=== PATIENT | male | born 1940 | race Caucasian/White ===

== ENCOUNTER → 2016-05-01 | Outpatient (CLI) | payer MEDICARE, BC | LOC: MW.CHUR 13:04 | PROVIDERS: ATTEND Urology | DX: N39.0 Urinary tract infection, site not specified (principal); R35.1 Nocturia | CPT/HCPCS: 76872; 81001; 87086; G0463 ==

== ENCOUNTER 2016-05-20 06:31 | Day surgery (SDC) | payer MEDICARE, BC ==
[~2016-05-20 06:31] MED LIST: Ciprofloxacin in D5W 400 MG in Premix Bag 1 BAG IV SCH; Lactated Ringers 1,000 ML IV SCH
[2016-05-20] MEDS ORDERED: fentaNYL 100 MCG/2 ML SDV ONE (07:09)
[2016-05-20] MEDS ORDERED: Propofol 200 MG/20 ML SDV ONE (07:09)
[2016-05-20] MEDS ORDERED: Lidocaine 2% 5 ML SDV ONE (07:09)
[2016-05-20] MEDS ORDERED: Midazolam 1 MG/ML 2 ML SDV ONE (07:09)
--- NOTE | 2016-05-20 07:21 | PCM.PREANE ---
Preanesthetic Assessment - Anesthesia/Transfusion/Family Hx Anesthesia History: Prior Anesthesia Without Reaction Other Type of Anesthesia Reaction Comment: states was confused when first coming out of anesthesia with prostate surge Family History of Anesthesia Reaction: No Transfusion History: No Prior Transfusion(s) - Review of Systems General: No Symptoms Pulmonary: No Symptoms Cardiovascular: No Symptoms Gastrointestinal: No symptoms Neurological: No Symptoms Other: Reports: None - Physical Assessment NPO Status Date: 05/19/16 Height: 1.83 m Weight: 124.284 kg ASA Class: 2 Mental Status: Alert & Oriented x3 Airway Class: Mallampati = 2 Dentition: Reports: Normal Dentition ROM/Head Extension: Full Lungs: Clear to auscultation Cardiovascular: Regular Rate - Allergies Allergies/Adverse Reactions: Allergies Allergy/AdvReac Type Severity Reaction Status Date / Time levofloxacin [From Levaquin] Allergy Other Verified 05/14/16 12:16 - Anesthesia Plan Pre-Op Medication Ordered: None Beta Dorothy: Metoprolol Med Last Dose Date: 05/19/16 Med Last Dose Time: 18:00 - Acknowledgements Anesthesia Type Planned: Spinal Pt an Appropriate Candidate for the Planned Anesthesia: Yes Alternatives and Risks of Anesthesia Discussed w Pt/Guardian: Yes Pt/Guardian Understands and Agrees with Anesthesia Plan: Yes PreAnesthesia Questionnaire HEENT History: Reports: Other (see below) Other HEENT History: wears glasses Cardiovascular History: Reports: High cholesterol, Hypertension Respiratory History: Reports: Pneumonia, recurrent, SOB Other Respiratory History: SOB (on inhaler), recurrent pneumonia in the past Gastrointestinal History: Reports: None Genitourinary History: Reports: BPH, UTI, recurrent Endocrine/Metabolic History: Reports: Obesity/BMI 30+ - Past Surgical History Head Surgeries/Procedures: Reports: None GI Surgical History: Reports: Colonoscopy Male Surgical History: Reports: Other (see below) Other Male Surgeries/Procedures: prostate surgery in the past - HOME MEDS Home Medications: Home Meds Aspirin [[place] Aspirin] 81 mg PO DAILY 05/14/16 [History] Atenolol [Tenormin] 50 mg PO DAILY 05/14/16 [History] Enalapril Maleate 20 mg PO DAILY 05/14/16 [History] Fluticasone/Vilanterol [Breo Ellipta 100-25 MCG Inhalation Kit] 1 inhalation INH DAILY 05/14/16 [History] Rosuvastatin [Crestor] 5 mg PO DAILY 05/14/16 [History] Tamsulosin HCl [Flomax] 2 tab PO DAILY 05/14/16 [History] Ciprofloxacin HCl [Cipro] 500 mg PO BID 05/15/16 [History] - CURRENT (IN HOUSE) MEDS Current Meds: Current Medications Ciprofloxacin/Dextrose 400 mg/ (Premix) 200 mls @ 200 mls/hr IV ONCALL [facility] Lactated Ringer's (Ringers, Lactated) 1,000 mls @ 100 mls/hr IV ASDIRECTED [facility] Discontinued Medications Fentanyl (Sublimaze) Confirm Administered Dose 100 mcg .ROUTE .STK-MED ONE Stop: 05/20/16 07:10 Lidocaine (Xylocaine-Mpf 2%) Confirm Administered Dose 5 ml .ROUTE .STK-MED ONE Stop: 05/20/16 07:10 Midazolam HCl (Versed 1 Mg/Ml) Confirm Administered Dose 2 mg .ROUTE .STK-MED ONE Stop: 05/20/16 07:10 Propofol (Diprivan 20 Ml) Confirm Administered Dose 400 mg .ROUTE .STK-MED ONE Stop: 05/20/16 07:10 Preanesthetic Assessment - ANESTHESIA/TRANSFUSION/FAMILY HX Other Type of Anesthesia Reaction Comment: states was confused when first coming out of anesthesia with prostate surge Family History of Anesthesia Reaction: No - PHYSICAL ASSESSMENT Height: 1.83 m Weight: 124.284 kg - ALLERGIES Allergies/Adverse Reactions: Allergies Allergy/AdvReac Type Severity Reaction Status Date / Time levofloxacin [From Levaquin] Allergy Other Verified 05/14/16 12:16
[2016-05-20] MEDS ORDERED: ePHEDrine 50 MG/ML SDV ONE (08:20)
[2016-05-20] MEDS ORDERED: Phenylephrine/Normal Saline 100 MCG/ML 10 ML Syringe ONE (08:39)
--- NOTE | 2016-05-20 10:10 | PCM.POSTAN ---
POST ANESTHESIA ASSESSMENT - MENTAL STATUS Mental Status: alert, oriented - RESPIRATORY Respiratory Status: respiratory rate WNL, airway patent - CARDIOVASCULAR CV Status: pulse rate WNL, blood pressure stable - GASTROINTESTINAL GI Status: no symptoms - PAIN Pain Score: 0 - POST OP HYDRATION Hydration Status: adequate & stable
--- NOTE | 2016-05-20 14:24 | OR ---
SURGEON: Kiana Lee M.D. DATE OF PROCEDURE: 05/20/2016 PREOPERATIVE DIAGNOSIS: 1. Enlarged prostate with obstructive symptoms. 2. Increased postvoid residual urine and history of urinary tract infection. POSTOP DIAGNOSIS: 1. Enlarged prostate with obstructive symptoms. 2. Increased postvoid residual urine and history of urinary tract infection. OPERATION: Transurethral resection of the prostate. DESCRIPTION OF PROCEDURE: The patient was given spinal anesthesia, placed in dorsal lithotomy position, prepped and draped in sterile drapes. Cystourethroscopy was done showed the bladder neck to have been resected in the past or treated. The right side of the prostate was partially resected. The left side was not and the anterior part of the prostate was done. So the dissection was started on the left side, continued anteriorly until all the obstructive tissue was removed. At the end, both ureteral orifices were intact. The area of the external sphincter was intact. A 22 three-way Yusuf catheter with 7 mL in the balloon was left in the bladder connected to TUR drip. Estimated blood loss about 200 mL. The patient tolerated the procedure well was moved to recovery room in good condition. FAISAL / TASIA /[id number]
--- NOTE | 2016-05-20 15:00 | PCM.CONS ---
H&P History of Present Illness - General Admit Problem/Dx: Admission Diagnosis/Problem Admission Diagnosis/Problem Transurethral prostatectomy - History of Present Illness Initial Comments - Free Text/Narative: 76 yo male with pmh of hypertension, hyperlipidemia, and BPH. Patient was admitted following elective TURP due to enlarged prostate with obstructive symptoms and UTI. He denies any chest pain, lightheadedness, fevers, or chills. - Related Data Allergies/Adverse Reactions: Allergies Allergy/AdvReac Type Severity Reaction Status Date / Time levofloxacin [From Levaquin] Allergy Other Verified 05/14/16 12:16 Home Medications: Home Meds Aspirin [[place] Aspirin] 81 mg PO BEDTIME 05/14/16 [History] Atenolol [Tenormin] 50 mg PO BEDTIME 05/14/16 [History] Enalapril Maleate 20 mg PO BEDTIME 05/14/16 [History] Fluticasone/Vilanterol [Breo Ellipta 100-25 MCG Inhalation Kit] 1 inhalation INH DAILY 05/14/16 [History] Rosuvastatin [Crestor] 5 mg PO BEDTIME 05/14/16 [History] Tamsulosin HCl [Flomax] 0.8 mg PO BEDTIME 05/14/16 [History] Ciprofloxacin HCl [Cipro] 500 mg PO BID 05/15/16 [History] Past Medical History HEENT History: Reports: Other (see below) Other HEENT History: wears glasses Cardiovascular History: Reports: High cholesterol, Hypertension Respiratory History: Reports: Pneumonia, recurrent, SOB Other Respiratory History: SOB (on inhaler), recurrent pneumonia in the past Gastrointestinal History: Reports: None Genitourinary History: Reports: BPH, UTI, recurrent Endocrine/Metabolic History: Reports: Obesity/BMI 30+ - Past Surgical History Head Surgeries/Procedures: Reports: None GI Surgical History: Reports: Colonoscopy Male Surgical History: Reports: Other (see below) Other Male Surgeries/Procedures: prostate surgery in the past Social & Family History - Family History Family Medical History: Noncontributory - Tobacco Use Smoking Status *Q: Never Smoker Second Hand Smoke Exposure: No - Caffeine Use Caffeine Use: Reports: None - Recreational Drug Use Recreational Drug Use: No Drug Use in Last 12 Months: No H&P Review of Systems - Review of Systems: Review Of Systems: See Below General: Reports: no symptoms HEENT: Reports: no symptoms Pulmonary: Reports: No Symptoms Cardiovascular: Reports: no symptoms Gastrointestinal: Reports: No symptoms Genitourinary: Reports: no symptoms Musculoskeletal: Reports: no symptoms Skin: Reports: no symptoms Psychiatric: Reports: no symptoms Neurological: Reports: No Symptoms Hematologic/Lymphatic: Reports: no symptoms Immunologic: Reports: no symptoms Exam - Exam Exam: See Below - Vital Signs Vital Signs: Last Vital Signs Temp 36.1 C 05/20/16 12:00 Pulse 49 L 05/20/16 13:00 Resp 16 05/20/16 13:00 BP 122/74 05/20/16 13:00 Pulse Ox 97 05/20/16 13:00 Weight: 123.5 kg - Exam General: alert, oriented, 4 Neck: supple, trachea midline, 2 Lungs: Clear to auscultation, Normal respiratory effort Cardiovascular: regular rhythm, bradycardia Abdomen: normal bowel sounds, soft Extremities: normal inspection Skin: warm, dry, intact - Patient Data Lab Results last 24 hrs: Laboratory Results - last 24 hr 05/20/16 Range/Units 06:56 WBC 6.01 (4.0-11.0) K/uL RBC 5.32 (4.50-5.90) M/uL Hgb 15.4 (13.0-17.0) g/dL Hct 48.8 (38.0-50.0) % MCV 91.7 (80.0-98.0) fL MCH 28.9 (27.0-32.0) pg MCHC 31.6 (31.0-37.0) g/dL RDW Std Deviation 46.9 (28.0-62.0) fl RDW Coeff of Deandre 14 (11.0-15.0) % Plt Count 153 (150-400) K/uL MPV 11.30 (7.40-12.00) fL Neut % (Auto) 50.9 (48.0-80.0) % Lymph % (Auto) 38.4 (16.0-40.0) % [place] % (Auto) 9.5 (0.0-15.0) % Eos % (Auto) 1.0 (0.0-7.0) % Baso % (Auto) 0.2 (0.0-1.5) % Neut # (Auto) 3.1 (1.4-5.7) K/uL Lymph # (Auto) 2.3 (0.6-2.4) K/uL [place] # (Auto) 0.6 (0.0-0.8) K/uL Eos # (Auto) 0.1 (0.0-0.7) K/uL Baso # (Auto) 0.0 (0.0-0.1) K/uL Nucleated RBC % 0.0 /100WBC Nucleated RBCs # 0 K/uL Result Diagrams: 05/21/16 04:22 05/21/16 04:22 Consult PN Assessment/Plan Procedures: Procedures ASSAY OF PSA TOTAL (02/18/16) CT ABD & PELVIS W/O CONTRAST (02/18/16) CYSTOSCOPY (07/19/15) MICROBE SUSCEPTIBLE [place] (02/18/16) OFFICE/OUTPATIENT VISIT NEW (07/19/15) ROUTINE VENIPUNCTURE (02/18/16) URINALYSIS AUTO W/SCOPE (05/01/16) URINE BACTERIA CULTURE (02/18/16) URINE CULTURE/COLONY COUNT (05/01/16) US TRANSRECTAL (02/18/16) Problem List Initiated/Reviewed/Updated: Yes My Orders last 24 hours: My Active Orders 05/20/16 14:46 EKG Documentation Completion [RC] ROUTINE Plan: 76 yo male with pmh of hypertension, hyperlipidemia and UTI who is s/p TURP by Dr. Lee. Home antihypertensive medications have been restarted
[2016-05-20] MEDS ORDERED: Ciprofloxacin in D5W 400 MG in Premix Bag 1 BAG IV SCH ×2 (20:00)
[2016-05-20] MEDS ORDERED: diphenhydrAMINE 50 MG/ML SDV IVPUSH ONE (20:08)
[2016-05-20] MEDS: Atenolol 50 MG Tab PO SCH (20:39)
[2016-05-20] MEDS: Rosuvastatin 10 MG Tab PO SCH (20:39)
[2016-05-21 05:02] LABS: CHLORIDE,CL 109 mmol/L (98-110); SODIUM,NA 139 mmol/L (136-146)
--- NOTE | 2016-05-21 11:53 | PCM.CONSN ---
- General Info Date of Service: 05/21/16 Admission Dx/Problem (Free Text): Admission Diagnosis/Problem Admission Diagnosis/Problem Transurethral prostatectomy Subjective Update: Patient up ambulating and feeling well. He reports no pain. Blood pressure and HR were slightly low this morning but patient was asymptomatic. Re-check of vitals showed BP and HR WNL. Functional Status: Reports: pain controlled, tolerating diet, ambulating, urinating - Review of Systems General: Reports: No Symptoms HEENT: Reports: no symptoms Pulmonary: Reports: no symptoms Cardiovascular: Reports: No Symptoms Gastrointestinal: Reports: No symptoms Genitourinary: Reports: no symptoms Musculoskeletal: Reports: no symptoms Skin: Reports: no symptoms Neurological: Reports: No Symptoms Psychiatric: Reports: no symptoms - Patient Data Vitals - most recent: Last Vital Signs Temp 97.9 F 05/21/16 08:00 Pulse 71 05/21/16 08:00 Resp 20 05/21/16 08:00 BP 125/80 05/21/16 08:00 Pulse Ox 92 L 05/21/16 08:00 Weight - most recent: 272 lb 4.334 oz I&O - last 24 hours: Intake & Output 05/20/16 05/21/16 05/21/16 22:59 06:59 14:59 Intake Total 4650 500 Output Total 3930 475 Balance 720 25 Lab Results last 24 hrs: Laboratory Results - last 24 hr 05/21/16 05/21/16 Range/Units 04:22 04:22 WBC 7.88 (4.0-11.0) K/uL RBC 4.86 (4.50-5.90) M/uL Hgb 14.1 (13.0-17.0) g/dL Hct 44.7 (38.0-50.0) % MCV 92.0 (80.0-98.0) fL MCH 29.0 (27.0-32.0) pg MCHC 31.5 (31.0-37.0) g/dL RDW Std Deviation 47.1 (28.0-62.0) fl RDW Coeff of Deandre 14 (11.0-15.0) % Plt Count 137 L (150-400) K/uL MPV 11.10 (7.40-12.00) fL Neut % (Auto) 71.4 (48.0-80.0) % Lymph % (Auto) 20.4 (16.0-40.0) % [place] % (Auto) 7.5 (0.0-15.0) % Eos % (Auto) 0.6 (0.0-7.0) % Baso % (Auto) 0.1 (0.0-1.5) % Neut # (Auto) 5.6 (1.4-5.7) K/uL Lymph # (Auto) 1.6 (0.6-2.4) K/uL [place] # (Auto) 0.6 (0.0-0.8) K/uL Eos # (Auto) 0.1 (0.0-0.7) K/uL Baso # (Auto) 0.0 (0.0-0.1) K/uL Nucleated RBC % 0.0 /100WBC Nucleated RBCs # 0 K/uL Sodium 139 (136-146) mmol/L Potassium 4.4 (3.5-5.1) mmol/L Chloride 109 (98-110) mmol/L Carbon Dioxide 23 (21-31) mmol/L BUN 13 (6.0-23.0) mg/dL Creatinine 0.8 (0.6-1.5) mg/dL Est Cr Clr Drug Dosing 86.34 mL/min Estimated GFR (MDRD) > 60.0 ml/min Glucose 100 (60-110) mg/dL Calcium 8.4 L (8.8-10.8) mg/dL Med Orders - Current: Current Medications Atenolol (Tenormin) 50 mg PO BEDTIME [facility] Last Admin: 05/20/16 20:39 Dose: 50 mg Enalapril Maleate (Vasotec) 20 mg PO BEDTIME [facility] Last Admin: 05/20/16 20:39 Dose: 20 mg Fluticasone/Vilanterol 1 Inhalation 1 each INH DAILY [facility] Rosuvastatin Calcium (Crestor) 5 mg PO BEDTIME [facility] Last Admin: 05/20/16 20:39 Dose: 5 mg Discontinued Medications Diphenhydramine HCl (Benadryl) 25 mg IVPUSH ONETIME ONE Stop: 05/20/16 20:09 Last Admin: 05/20/16 20:36 Dose: 25 mg Ephedrine Sulfate (Ephedrine Sulfate) Confirm Administered Dose 50 mg .ROUTE .STK-MED ONE Stop: 05/20/16 08:21 Fentanyl (Sublimaze) Confirm Administered Dose 100 mcg .ROUTE .STK-MED ONE Stop: 05/20/16 07:10 Ciprofloxacin/Dextrose 400 mg/ (Premix) 200 mls @ 200 mls/hr IV ONCALL [facility] Last Admin: 05/20/16 07:50 Dose: 200 mls/hr Lactated Ringer's (Ringers, Lactated) 1,000 mls @ 100 mls/hr IV ASDIRECTED [facility] Last Admin: 05/20/16 06:50 Dose: 100 mls/hr Tobramycin 120 mg/ Sodium (Chloride) 103 mls @ 120 mls/hr IV ONETIME ONE Stop: 05/20/16 09:21 Last Admin: 05/20/16 12:23 Dose: Not Given Ciprofloxacin/Dextrose 400 mg/ (Premix) 200 mls @ 200 mls/hr IV Q12H [facility] Last Admin: 05/20/16 19:24 Dose: 200 mls/hr Lidocaine (Xylocaine-Mpf 2%) Confirm Administered Dose 5 ml .ROUTE .STK-MED ONE Stop: 05/20/16 07:10 Midazolam HCl (Versed 1 Mg/Ml) Confirm Administered Dose 2 mg .ROUTE .STK-MED ONE Stop: 05/20/16 07:10 Phenylephrine HCl (Phenylephrine In Ns 100 Mcg/Ml) Confirm Administered Dose 1 mg .ROUTE .STK-MED ONE Stop: 05/20/16 08:40 Propofol (Diprivan 20 Ml) Confirm Administered Dose 400 mg .ROUTE .STK-MED ONE Stop: 05/20/16 07:10 - Exam Quality Assessment: urine catheter, DVT prophylaxis (SCD's) General: alert, oriented, cooperative, no acute distress Neck: supple Lungs: Clear to auscultation, Normal respiratory effort Cardiovascular: Regular Rate, Regular Rhythm Abdomen: bowel sounds present, soft, no tenderness, no distension Extremities: no edema, no calf tenderness Peripheral Pulses: 2+: radial (L), radial (R) Skin: warm, dry, intact Neurological: no new focal deficit Psy/Mental Status: alert, normal affect, normal mood Consult PN Assessment/Plan POD#: 1 Procedures: Procedures ASSAY OF PSA TOTAL (02/18/16) CT ABD & PELVIS W/O CONTRAST (02/18/16) CYSTOSCOPY (07/19/15) MICROBE SUSCEPTIBLE [place] (02/18/16) OFFICE/OUTPATIENT VISIT NEW (07/19/15) ROUTINE VENIPUNCTURE (02/18/16) URINALYSIS AUTO W/SCOPE (05/01/16) URINE BACTERIA CULTURE (02/18/16) URINE CULTURE/COLONY COUNT (05/01/16) US TRANSRECTAL (02/18/16) (1) Hypertension SNOMED Code(s): 78596250 Code(s): I10 - ESSENTIAL (PRIMARY) HYPERTENSION Current Visit: Yes (2) S/P TURP (status post transurethral resection of prostate) SNOMED Code(s): 515389322, 115062294 Code(s): Z90.79 - ACQUIRED ABSENCE OF OTHER GENITAL ORGAN(S) Current Visit : Yes Problem List Initiated/Reviewed/Updated: Yes Plan: blood pressure and HR were a little low this morning. Patient was asymptomatic. Re-check of vitals showed BP and HR WNL. Continue anti-hypertensives. Recommend DVT prophylaxis when safe.
[2016-05-21] MEDS: Fluticasone/Vilanterol 1 INHALATION INH SCH (13:26)
--- NOTE | 2016-05-21 19:21 | PCM48HPAN ---
Post Anesthesia Note - EVALUATION WITHIN 48HRS OF ANESTHETIC Vital Signs in Normal Range: Yes Patient Participated in Evaluation: Yes Respiratory Function Stable: Yes Airway Patent: Yes Cardiovascular Function Stable: Yes Hydration Status Stable: Yes Pain Control Satisfactory: Yes Nausea and Vomiting Control Satisfactory: Yes Mental Status Recovered: Yes
[2016-05-21] MEDS: Atenolol 50 MG Tab PO SCH (20:33)
[2016-05-21] MEDS: Rosuvastatin 10 MG Tab PO SCH (20:35)
[2016-05-22 08:46] VITALS: BP 122/73
--- NOTE | 2016-05-22 09:12 | PCM.CONSN ---
- General Info Date of Service: 05/22/16 Admission Dx/Problem (Free Text): Admission Diagnosis/Problem Admission Diagnosis/Problem Transurethral prostatectomy Subjective Update: Patient up ambulating and feeling well. He reports no pain. BP and HR are WNL. Yusuf cath removed this morning. Patient denies chest pain, shortness of breath , abdominal pain, N/V/C/D. Functional Status: Reports: pain controlled, tolerating diet, ambulating, urinating - Review of Systems General: Reports: No Symptoms HEENT: Reports: no symptoms Pulmonary: Reports: no symptoms Cardiovascular: Reports: No Symptoms Gastrointestinal: Reports: No symptoms Genitourinary: Reports: no symptoms Musculoskeletal: Reports: no symptoms Skin: Reports: no symptoms Neurological: Reports: No Symptoms Psychiatric: Reports: no symptoms - Patient Data Vitals - most recent: Last Vital Signs Temp 97.9 F 05/22/16 08:00 Pulse 61 05/22/16 08:00 Resp 22 H 05/22/16 08:00 BP 122/73 05/22/16 08:00 Pulse Ox 92 L 05/22/16 08:00 Weight - most recent: 272 lb 4.334 oz I&O - last 24 hours: Intake & Output 05/21/16 05/22/16 05/22/16 22:59 06:59 14:59 Intake Total 3500 650 Output Total 3650 3225 Balance -150 -2575 Med Orders - Current: Current Medications Atenolol (Tenormin) 50 mg PO BEDTIME [facility] Last Admin: 05/21/16 20:33 Dose: 50 mg Enalapril Maleate (Vasotec) 20 mg PO BEDTIME [facility] Last Admin: 05/21/16 20:34 Dose: 20 mg Fluticasone/Vilanterol 1 Inhalation 1 each INH DAILY [facility] Last Admin: 05/21/16 13:26 Dose: Not Given Rosuvastatin Calcium (Crestor) 5 mg PO BEDTIME [facility] Last Admin: 05/21/16 20:35 Dose: 5 mg Discontinued Medications Diphenhydramine HCl (Benadryl) 25 mg IVPUSH ONETIME ONE Stop: 05/20/16 20:09 Last Admin: 05/20/16 20:36 Dose: 25 mg Ephedrine Sulfate (Ephedrine Sulfate) Confirm Administered Dose 50 mg .ROUTE .STK-MED ONE Stop: 05/20/16 08:21 Fentanyl (Sublimaze) Confirm Administered Dose 100 mcg .ROUTE .STK-MED ONE Stop: 05/20/16 07:10 Ciprofloxacin/Dextrose 400 mg/ (Premix) 200 mls @ 200 mls/hr IV ONCALL [facility] Last Admin: 05/20/16 07:50 Dose: 200 mls/hr Lactated Ringer's (Ringers, Lactated) 1,000 mls @ 100 mls/hr IV ASDIRECTED [facility] Last Admin: 05/20/16 06:50 Dose: 100 mls/hr Tobramycin 120 mg/ Sodium (Chloride) 103 mls @ 120 mls/hr IV ONETIME ONE Stop: 05/20/16 09:21 Last Admin: 05/20/16 12:23 Dose: Not Given Ciprofloxacin/Dextrose 400 mg/ (Premix) 200 mls @ 200 mls/hr IV Q12H [facility] Last Admin: 05/20/16 19:24 Dose: 200 mls/hr Lidocaine (Xylocaine-Mpf 2%) Confirm Administered Dose 5 ml .ROUTE .STK-MED ONE Stop: 05/20/16 07:10 Midazolam HCl (Versed 1 Mg/Ml) Confirm Administered Dose 2 mg .ROUTE .STK-MED ONE Stop: 05/20/16 07:10 Phenylephrine HCl (Phenylephrine In Ns 100 Mcg/Ml) Confirm Administered Dose 1 mg .ROUTE .STK-MED ONE Stop: 05/20/16 08:40 Propofol (Diprivan 20 Ml) Confirm Administered Dose 400 mg .ROUTE .STK-MED ONE Stop: 05/20/16 07:10 - Exam General: alert, oriented, cooperative, no acute distress Neck: supple Lungs: Clear to auscultation, Normal respiratory effort Cardiovascular: Regular Rate, Regular Rhythm Abdomen: bowel sounds present, soft, no tenderness, no distension Extremities: no edema, no calf tenderness Peripheral Pulses: 2+: radial (L), radial (R) Skin: warm, dry, intact Neurological: no new focal deficit Psy/Mental Status: alert, normal affect, normal mood Consult PN Assessment/Plan POD#: 2 Procedures: Procedures ASSAY OF PSA TOTAL (02/18/16) CT ABD & PELVIS W/O CONTRAST (02/18/16) CYSTOSCOPY (07/19/15) MICROBE SUSCEPTIBLE [place] (02/18/16) OFFICE/OUTPATIENT VISIT NEW (07/19/15) ROUTINE VENIPUNCTURE (02/18/16) URINALYSIS AUTO W/SCOPE (05/01/16) URINE BACTERIA CULTURE (02/18/16) URINE CULTURE/COLONY COUNT (05/01/16) US TRANSRECTAL (02/18/16) (1) Hypertension SNOMED Code(s): 30467743 Code(s): I10 - ESSENTIAL (PRIMARY) HYPERTENSION Current Visit: Yes (2) S/P TURP (status post transurethral resection of prostate) SNOMED Code(s): 827382685, 383239307 Code(s): Z90.79 - ACQUIRED ABSENCE OF OTHER GENITAL ORGAN(S) Current Visit : Yes Problem List Initiated/Reviewed/Updated: Yes Plan: BP and HR are WNL. Patient is feeling well and has no pain or acute concerns at this time. Continue current medications. Recommend DVT prophylaxis when safe.
[2016-05-22] MEDS: Fluticasone/Vilanterol 1 INHALATION INH SCH (09:14)
--- NOTE | 2016-05-23 04:25 | DISCH ---
DATE OF DISCHARGE: 05/22/2016 PRIMARY CARE PHYSICIAN: Keith Bennett Jr, GERRI This is a 76-year-old. He was admitted to the hospital with obstructive urinary symptoms having been evaluated in the office for a TURP. That was done on 05/20/2016. Postoperatively, he did very well and remained stable. I was able to void without difficulty. The urine at the time of discharge, is clear. Pathology on the remaining procedure and pathology on the tissue is still pending. Discharged on Cipro that he had previously at home just finished the prescription that he already had. He is to come back as needed. FAISAL / TASIA /[id number]
== END 2016-05-22 10:49 | disposition home or self-care (01) ==
LOC: MW.SDS 06:31 → MW.MS 10:50 → MW.SDS 15:30 → MW.MS 15:30 → UNDOADMOB 15:30 → UNDODISOB 05-22 10:49 → MW.SDS 05-22 10:49
PROVIDERS: ATTEND Urology
DX: N40.1 Benign prostatic hyperplasia with lower urinary tract symptoms (principal); N13.8 Other obstructive and reflux uropathy; R31.9 Hematuria, unspecified; I10 Essential (primary) hypertension; Z87.440 Personal history of urinary (tract) infections; Z88.1 Allergy status to other antibiotic agents; Z79.82 Long term (current) use of aspirin; Z79.899 Other long term (current) drug therapy
CPT/HCPCS: 36415; 52601; 80048; 85025; 88305; 93005; A9270; J0744; J1200; J2250; J3010; J7120; 00914; J2704